=== PATIENT | female | born 1965 | race Caucasian/White ===

== ENCOUNTER 2017-04-22 22:33 | Emergency (ER) | payer MEDICAID ==
[2017-04-22 23:47] VITALS: BP 112/71
== END 2017-04-22 23:47 | disposition home or self-care (01) ==
LOC: ED 22:33
DX: L03.113 Cellulitis of right upper limb (principal); R07.89 Other chest pain; Z85.3 Personal history of malignant neoplasm of breast
CPT/HCPCS: J1885

== ENCOUNTER 2018-02-04 18:03 | Inpatient (IN) | payer MEDICAID ==
[~2018-02-04] VITALS: Ht 172.7 cm; Wt 81.3 kg
[2018-02-04 19:00] LABS: BASOPHIL % 0.9 % (0-2); PLATELET COUNT 273 x10^3mcL (130-400); RED CELL DISTRIBUTION WIDTH 13.5 % (11.5-14.5)
[2018-02-04 19:09] LABS: CALCIUM 8.8 mg/dL (8.5-10.1); CARBON DIOXIDE 25.9 mmol/L (21-32); CHLORIDE SERUM 101 mmol/L (98-107); CREATININE SERUM 0.8 mg/dL (0.6-1.0); GFR1 > 60 mL/min; GLUCOSE SERUM 110 mg/dL (74-106); POTASSIUM SERUM 3.6 mmol/L (3.5-5.1); SODIUM SERUM 137 mmol/L (136-145)
[2018-02-04 19:15] LABS: ALKALINE PHOSPHATASE 68 U/L (46-116); ALT/SGPT 32 U/L (14-59); AST/SGOT 26 U/L (15-37); BILIRUBIN TOTAL 1.2 mg/dL (0.20-1.00); TOTAL PROTEIN, SERUM 6.7 g/dL (6.4-8.2)
[2018-02-04 19:16] LABS: ALBUMIN 2.9 g/dL (3.4-5.0)
[2018-02-04 21:04] VITALS: BP 97/56
[2018-02-04 22:35] LABS: MAGNESIUM 1.8 mg/dL (1.8-2.4); PHOSPHOROUS 2.8 mg/dL (2.5-4.9)
[2018-02-04 22:45] LABS: T4(THYROXINE) 6.1 ug/dL (4.7-13.3)
[2018-02-04 23:15] LABS: T3 TOTAL 0.82 ng/mL
[2018-02-05 05:48] VITALS: BP 105/55
[2018-02-05 09:57] VITALS: BP 105/58
[2018-02-05 13:45] VITALS: BP 109/71
[2018-02-05 17:28] LABS: CALCIUM 8.2 mg/dL (8.5-10.1); CARBON DIOXIDE 26.6 mmol/L (21-32); CHLORIDE SERUM 107 mmol/L (98-107); CREATININE SERUM 0.8 mg/dL (0.6-1.0); GFR1 > 60 mL/min; GLUCOSE SERUM 105 mg/dL (74-106); POTASSIUM SERUM 3.9 mmol/L (3.5-5.1); SODIUM SERUM 139 mmol/L (136-145)
[2018-02-05 17:33] LABS: PLATELET COUNT 239 x10^3mcL (130-400); RED CELL DISTRIBUTION WIDTH 13.4 % (11.5-14.5)
[2018-02-05 17:34] LABS: BASOPHIL % 0.3 % (0-2)
[2018-02-05 18:06] VITALS: BP 117/67
[2018-02-05 18:31] LABS: UA SPECIFIC GRAVITY 1.015 (1.005-1.035); microscopic required? YES; urine erythrocyte 3+ (NEGATIVE)
[2018-02-05 18:40] LABS: AMPHETAMINE QUAL UR NONE DETECTED (NEG <=1000)
[2018-02-05 20:56] VITALS: BP 118/67
[2018-02-06 05:22] VITALS: BP 102/68
[2018-02-06 06:02] LABS: BASOPHIL % 0.8 % (0-2); PLATELET COUNT 255 x10^3mcL (130-400); RED CELL DISTRIBUTION WIDTH 13.6 % (11.5-14.5)
[2018-02-06 06:44] LABS: CALCIUM 8.6 mg/dL (8.5-10.1); CARBON DIOXIDE 27.6 mmol/L (21-32); CHLORIDE SERUM 108 mmol/L (98-107); CREATININE SERUM 0.7 mg/dL (0.6-1.0); GFR1 > 60 mL/min; GLUCOSE SERUM 93 mg/dL (74-106); POTASSIUM SERUM 4.2 mmol/L (3.5-5.1); SODIUM SERUM 144 mmol/L (136-145)
[2018-02-06 08:36] VITALS: BP 109/63
[2018-02-06 13:27] VITALS: BP 121/70
[2018-02-06] MEDS ORDERED: CLEOCIN HCL300 MG PO (13:31)
[2018-02-06] MEDS ORDERED: LAC PO (13:32)
[2018-02-06] MEDS ORDERED: TYL325 PO (13:40)
[2018-02-06 14:14] VITALS: BP 121/70
== END 2018-02-06 15:04 | disposition home or self-care (01) | DRG 383 ==
LOC: ED 18:03 → DU 20:12
PROVIDERS: Emergency Medicine; Family Medicine Sports Medicine
DX: L03.113 Cellulitis of right upper limb (principal); E44.0 Moderate protein-calorie malnutrition; C50.911 Malignant neoplasm of unspecified site of right female breast; C50.912 Malignant neoplasm of unspecified site of left female breast; E78.1 Pure hyperglyceridemia; Z90.13 Acquired absence of bilateral breasts and nipples; Z68.27 Body mass index [BMI] 27.0-27.9, adult
CPT/HCPCS: 84439; J2270; J2543; J3370; J3490; J7030; J7050; Q0092; Q0163